=== PATIENT | male | born 1955 | race Caucasian/White ===

== ENCOUNTER → 2016-11-07 | Day surgery (SDC) | payer MEDICARE ==
[~2016-11-07] VITALS: Ht 188 cm; Wt 96.2 kg
[~2016-11-07] MED LIST: CHEST CONGESTI400 MG PO; CRANBERRY500 MG PO; GARLIC200 MG PO; LEVAQUIN500 MG PO; PRINIVIL OR ZES10 MG PO; THERA-VITE W/ B1 TAB PO
--- NOTE | ~2016-11-07 | OR ---
PATIENT'S NAME: MARCELINO OLIVIA [facility] AGE: 61 Y [address] ROOM: [place] [address] LOCATION: [facility] – [place] ADMIT DATE: 11/07/2016 OR/Procedure Report DISCHARGE DATE: FAMILY PHYSICIAN: Robbie Perdomo MD ATTENDING PHYSICIAN: Shad Klein SURGEON: Shad Klein MD HOSPITAL MEDICAL ASSISTANT: DATE OF PROCEDURE: 11/07/2016 PREOPERATIVE DIAGNOSIS: Elevated PSA. POSTOPERATIVE DIAGNOSIS: Elevated PSA. PROCEDURE PERFORMED: Transrectal ultrasound prostate biopsy. ANESTHESIA: MAC. COMPLICATIONS: None. INDICATION FOR PROCEDURE: The patient is a 61-year-old male with elevated PSA of 55. A 4Kscore came back as 82, which represents high risk disease, and free and total PSA at that time was 48.3 and 13% free. Based upon this, it was recommended the patient undergo prostate biopsy. DETAILS OF PROCEDURE: After informed consent was obtained, the patient was placed in the decubitus position. The ultrasound probe was placed in the rectum and images of the prostate were taken. Following this, 5-needle sample biopsies were taken from the patient's right side and then from his left side. The samples were then sent to Pathology for analysis. The patient tolerated the procedure well and was transferred to recovery room in good condition. SHAD KLEIN MD JOANN/modl /[id number] CC: Robbie Perdomo MD d: 11/08/16 0012 t: 11/14/16 0942, OPERATIVE SUMMARY
== END | disposition disaster alternative care site (69) ==
LOC: GPOC 11-04 14:00 → GSDC 08:02 → GPOC 09:00
PROC: 0VB03ZX Excision of Prostate, Percutaneous Approach, Diagnostic (ICD-10-PCS; principal; 2016-11-07)
DX: C61 Malignant neoplasm of prostate (principal); I05.0 Rheumatic mitral stenosis; I10 Essential (primary) hypertension; G35 Multiple sclerosis; Z88.1 Allergy status to other antibiotic agents; Z98.890 Other specified postprocedural states; Z79.899 Other long term (current) drug therapy
CPT/HCPCS: J2001; J7030